=== PATIENT | female | born 1960 | race Caucasian/White ===

== ENCOUNTER 2017-11-08 20:38 | Emergency (ER) | payer MEDICAID ==
[~2017-11-08] VITALS: Ht 165.1 cm; Wt 125.2 kg
[2017-11-08 20:50] VITALS: BP_SYST 126
[2017-11-08 23:05] VITALS: BP_SYST 125
== END 2017-11-08 23:05 | disposition home or self-care (01) ==
LOC: SED 20:38
DX: S83.92XA Sprain of unspecified site of left knee, initial encounter (principal); I10 Essential (primary) hypertension; Z88.2 Allergy status to sulfonamides; Z90.49 Acquired absence of other specified parts of digestive tract; X58.XXXA Exposure to other specified factors, initial encounter; Y93.01 Activity, walking, marching and hiking; Y92.89 Other specified places as the place of occurrence of the external cause; Y99.8 Other external cause status
CPT/HCPCS: 73564; 99284

== ENCOUNTER 2020-12-19 07:58 | Emergency (ER) | payer MEDICAID, SELFPAY ==
[~2020-12-19] VITALS: Ht 165.1 cm; Wt 127.9 kg
--- NOTE | 2020-12-19 08:00 | NUR ---
Patient to ER bed 7 to gown for evaluation. Side rails up. Report given to Ghada TALBERT.
[2020-12-19 08:03] VITALS: BP_SYST 158
--- NOTE | 2020-12-19 08:03 | NUR ---
PT BROUGHT SELF TO ER C/O SUBSTERNAL CHEST PAIN X 3 WEEKS, NON-RADIATING 08/07. PT IS AMBULATORY, AAOX4, SPEAKING IN FULL SENTENCES, V/S STABLE
--- NOTE | 2020-12-19 08:05 | NUR ---
# 20 gauge angiocath placed to LAC. Use of asceptic technique. Opsite placed over site. Blood return noted. Blood for lab drawn from site. Flushed with 10 cc of normal saline. No evidence of infiltration noted. Patient tolerated well.
--- NOTE | 2020-12-19 08:12 | NUR ---
ER DR. JACK AT THE BEDSIDE EXAMINING PT
[2020-12-19 08:29] LABS: BASOPHILS # (AUTO) 0.1 K/uL (0.0-0.2); BASOPHILS % (AUTO) 0.7 % (0.0-2.0); EOSINOPHILS # (AUTO) 0.1 K/uL (0.0-0.4); EOSINOPHILS % (AUTO) 1.4 % (0.0-4.0); HEMOGLOBIN 14.7 g/dL (12.0-16.0); LYMPHOCYTES # (AUTO) 2.3 K/uL (1.0-5.5); MEAN CORPUSCULAR HEMOGLOBIN 31 pg (27-31); MEAN CORPUSCULAR HGB CONC 34 % (32-36); MEAN CORPUSCULAR VOLUME 93 fL (79.0-98.0); MONOCYTES # (AUTO) 0.5 K/uL (0.0-1.0); MONOCYTES % (AUTO) 6.5 % (1.7-9.3); NEUTROPHILS # (AUTO) 4.1 K/uL (1.8-7.7); NEUTROPHILS % (AUTO) 58.4 % (40.0-70.0); PLATELET COUNT (AUTO) 218 K/uL (130-430); RED BLOOD CELL COUNT(AUTO) 4.71 MIL/uL (4.2-6.2); RED CELL DISTRIBUTION WIDTH 13.9 % (9.0-15.0); WHITE BLOOD COUNT (AUTO) 7.1 K/uL (4.8-10.8)
[2020-12-19] MEDS ORDERED: ASPIRIN 81 MG TAB.CHEW PO ONE (08:30)
[2020-12-19] MEDS ORDERED: NITROGLYCERIN 0.4 MG TAB.SUBL SL ONE (08:30)
[2020-12-19 08:39] LABS: CREATININE 0.74 mg/dL (0.55-1.30)
[2020-12-19 08:40] LABS: INR 0.9 (0.8-1.2); PROTHROMBIN TIME 9.9 SECS (9.5-12.5)
[2020-12-19 08:45] LABS: ALBUMIN 3.4 g/dL (3.4-4.8); TOTAL BILIRUBIN 0.4 mg/dL (0.0-1.0)
[2020-12-19 08:50] LABS: BILIRUBIN,URINE NEGATIVE (NEGATIVE); BLOOD, URINE NEGATIVE (NEGATIVE); CLARITY/URINE CLEAR (CLEAR); COLOR,URINE YELLOW (YELLOW); GLUCOSE,URINE NEGATIVE (NEGATIVE); KETONES,URINE NEGATIVE (NEGATIVE); LEUKOCYTE ESTERASE ,URINE 1+ (NEGATIVE); NITRITE, URINE NEGATIVE (NEGATIVE); PH,URINE 6.5 (5.0-8.0); PROTEIN URINE NEGATIVE (NEGATIVE); UROBILINOGEN,URINE 0.2 (0.2-1.0)
[2020-12-19 09:09] LABS: BACTERIA,URINE FEW /HPF (None Seen); MUCUS,URINE 1+ /LPF (None Seen); RBC,URINE 0-3 /HPF (0-3)
--- NOTE | 2020-12-19 09:30 | NUR ---
PT RESTING IN BED, NO DISTRESS, V/S STABLE
[2020-12-19] MEDS ORDERED: PANTOPRAZOLE SODIUM 40 MG TAB PO ONE (10:30)
[2020-12-19] MEDS ORDERED: PRO40 PO (10:36)
[2020-12-19 10:48] VITALS: BP_SYST 142
--- NOTE | 2020-12-19 10:49 | NUR ---
Patient given written and verbal discharge instructions and verbalizes understanding. ER MD discussed with patient the results and treatment provided. Patient in stable condition. ID arm band removed. IV catheter removed intact and dressing applied, no active bleeding. Rx of PROTONIX given. Patient educated on pain management and to follow up with PMD. Pain Scale 0/10. Opportunity for questions provided and answered. Medication side effect fact sheet provided.
== END 2020-12-19 10:48 | disposition home or self-care (01) ==
LOC: SED 07:58
DX: R07.89 Other chest pain (principal); I10 Essential (primary) hypertension; Z79.899 Other long term (current) drug therapy; Z88.2 Allergy status to sulfonamides; Z20.822 Contact with and (suspected) exposure to COVID-19
CPT/HCPCS: 36415; 71045; 80053; 81000; 83880; 84484; 85025; 85379; 85610-TC; 85730-TC; 87086; 93005; 99285